=== PATIENT | male | born 1970 | race Caucasian/White ===

== ENCOUNTER 2016-05-19 14:30 | Emergency (ER) | payer OTHER ==
[~2016-05-19 14:30] MED LIST: ASPIRIN EC LOW81 MG PO; CARDIZEM C2 PO; LOPRESSOR25 MG PO; LUNESTA1 MG PO; METHOCARBAMOL500 MG PO; NORCO1 TA1 PO
--- NOTE | 2016-05-20 02:33 | ED CLINICAL REPORT ---
Clinical Report - Physicians/Mid Levels [facility] [address] [address] 05/19/2016 14:30 Patient: RON POND Time Seen: 14:44; initial patient contact, initial documentation, patient care assumed. Arrived- By private vehicle. Historian- patient. HISTORY OF PRESENT ILLNESS Chief Complaint: HEADACHE and MIGRAINE HEADACHE. This started today. It is described as "pain" and diffuse. No neck pain. Not located in the facial region. At its maximum, severity described as severe. When seen in the E.D., severity described as severe. Modifying factors: worsened by bright light; relieved by nothing. The patient has had photophobia and nausea. No preceding symptoms, blurred vision, numbness, weakness or vomiting. No recent travel. Similar symptoms previously: Occasionally, milder. Recent medical care: The patient was seen recently in the office. ( had steroid spinal injection this am for back pain, headache started shortly after, took excedrin, no relief). REVIEW OF SYSTEMS No fever, sinus pressure, ear pain, sore throat or head injury. No chest pain or difficulty breathing. All systems otherwise negative, except as recorded above. PAST HISTORY See nurses notes. PROBLEMS: Laceration. Arthritis. Gastroenteritis. Chest Pain. Anxiety Reaction. Chronic Headache. Seizure Disorder. Headache. Head Injury. Migraine Headache. Heart Disease. Hypertension. --14:39 Hermann Camarillo R.N. ADDITIONAL SURGERIES: Shoulder Surgery. --14:39 Hermann Camarillo R.N. SOCIAL HISTORY Never smoker. No alcohol use or drug use. No recent travel. Is a local resident. FAMILY HISTORY Negative. ADDITIONAL NOTES The nursing notes have been reviewed with agreement regarding the chief complaint, HPI, ROS, PMH and patient medications and allergies. PHYSICAL EXAM Vital Signs: 05/19/2016 14:37 BP: 149/100. HR: 104. RR: 20. O2 saturation: 99%. Temp: 98 F. Pain level now: 10/10. Have been reviewed as abnormal and appear to be correct. Hypertensive. Tachycardic. Respiratory rate normal. Temperature normal. Oxygen saturation normal. Appearance: Alert. No acute distress. Eyes: Pupils equal, round and reactive to light. Eyes normal inspection. ENT: Ears normal. Nose normal. Pharynx normal. Neck: Normal inspection. Neck supple. CVS: Normal heart rate and rhythm. Heart sounds normal. Pulses normal. Respiratory: No respiratory distress. Breath sounds normal. Back: Normal inspection. Skin: Skin warm and dry. Normal skin color. No rash. Normal skin turgor. Extremities: Extremities exhibit normal ROM. No lower extremity edema. Neuro: Oriented X 3. Alert. Mood/affect normal. Speech normal. Cranial nerves normal (as tested). No cerebellar findings. No motor deficit. No sensory deficit. PROGRESS AND PROCEDURES Course of Care: 15:23 05/19/16. pt has long marcos for narcs, over 3,200 pills, last rx 05/04 for #84 oxycodone 15mg and #28 lunesta, see report for full details. Patient counseled in person regarding the patient's stable condition and diagnosis. 15:15. Differential Diagnosis: I considered migraine, subarachnoid hemorrhage, intracranial bleed, vascular malformation, cerebral aneurysm, vascular dissection, vasculitis, temporal arteritis, brain abscess, influenza, viral syndrome, carbon monoxide exposure, analgesic abuse, hypoglycemia, trigeminal neuralgia and dnux-fgdfch-jog headache as a possible cause of headache in this patient. This is a partial list of diagnoses considered. Above considerations are based on history and physical exam. Differential diagnosis was discussed with patient. Disposition: Discharged home in good and improved condition (15:15). Condition: good and stable. CLINICAL IMPRESSION Acute, poorly controlled headache. INSTRUCTIONS Warnings: GENERAL WARNINGS: Return or contact your physician immediately if your condition worsens or changes unexpectedly, if not improving as expected, or if other problems arise. SPECIFICALLY, return if you develop fever, vomiting, numbness, weakness, difficulty thinking, visual disturbances, fainting or extreme fatigue. Prescription Medications: Zofran 4 mg: Take 1 orally every six hours as needed for nausea/vomiting. Dispense ten (10). No refills. Substitution is permissible. Fioricet: Take 1-2 orally every 4 hours as needed for headache. Dispense twenty (20). No refills. Substitution is permissible. Follow-up: Follow up with your doctor in about three days even if well. Call for an appointment. Summary of care provided to patient. Screening today revealed the patient's blood pressure to be in the hypertensive range. The patient should follow up with a primary care provider for blood pressure management. Understanding of the discharge instructions verbalized by patient. (Electronically signed by Christina Yusuf A.R.N.P. 05/19/2016 16:43)
--- NOTE | 2016-05-20 02:33 | ED NURSING NOTES ---
Clinical Report - Nurses [facility] [address] [address] 05/19/2016 14:30 Patient: RON POND TRIAGE Triage time 14:37. Acuity: LEVEL 3. Chief Complaint: MIGRAINE HEADACHE and (Headache onset approx 1000 today. Pt had steroid spinal injection for new onset LBP this am.). 14:40 05/19/16. JEFF COMA SCORE: Jeff Coma Scale: 15- eyes open spontaneously (4); best verbal response- oriented x 4 (5); best motor response- obeys commands (6). --14:42 Hermann Camarillo R.N. 14:37 05/19/16. BP: 149/100. HR: 104. RR: 20. O2 saturation: 99% on room air. Temp: 98 F (oral). Pain level now: 12/21. --14:42 Hermann Camarillo R.N. Weight: 90.7 kg stated. Height/Length: 70 inches Per Patient. BMI: 28.7. --14:39 Hermann Camarillo R.N. Medications None. --14:38 Hermann Camarillo R.N. Allergies No Known Drug Allergy. --14:38 Hermann Camarillo R.N. History Arrived by private vehicle. Historian: patient. SOCIAL HX: Never smoker. No alcohol use or drug use. ABUSE ASSESSMENT: No report of abuse. --14:42 Hermann Camarillo R.N. PROBLEMS: Laceration. Arthritis. Gastroenteritis. Chest Pain. Anxiety Reaction. Chronic Headache. Seizure Disorder. Headache. Head Injury. Migraine Headache. Heart Disease. Hypertension. --14:39 Hermann Camarillo R.N. ADDITIONAL SURGERIES: Shoulder Surgery. --14:39 Hermann Camarillo R.N. Interventions ID band on patient. To treatment room. --14:42 Hermann Camarillo R.N. PHYSICAL ASSESSMENT 14:40. Ambulatory to room. GENERAL / NEURO / PSYCH: Alert. Oriented X 4. Appears in pain. Speech within normal limits. HEENT: No facial asymmetry noted. Photophobia present. Pupils equal, round and reactive to light. RESPIRATORY: Respirations not labored. Breath sounds within normal limits. CVS: Capillary refill less than 2 seconds. GI / : Abdomen soft and nontender. SKIN: Skin is warm and dry. ( LP site appears normal). --14:53 Hermann Camarillo R.N. NURSING PROGRESS NOTES 14:40. Patient gowned. Head of bed elevated. Reassurance given. Lights dimmed. Two patient identifiers checked. Call light placed in reach. Bed placed in lowest position. Brakes of bed on. Patient ready for evaluation- chart flagged. --14:53 Hermann Camarillo R.N. <<STRICKEN ENTRY-- 15:24 05/19/2016 Reglan (Metoclopramide HCl) IM 10 mg given. Allergies verified and confirmed 5 rights. --15:24 Erinn Dukes R.N. --END STRIKE>> Change to Details. --15:27 Erinn Dukes R.N. 15:24 05/19/2016 Reglan (Metoclopramide HCl) IM 10 mg given. Given in the right gluteus karen. Allergies verified and confirmed 5 rights. --15:27 Erinn Dukse R.N. 15:35 05/19/2016 Toradol (Ketorolac Tromethamine) IM 60 mg given. Given in the right gluteus karen. Allergies verified and confirmed 5 rights. --15:37 Hermann Camarillo R.N. 15:35 05/19/2016 Benadryl (DiphenhydrAMINE HCl) IM 50 mg given. Given in the left gluteus karen. Allergies verified, confirmed 5 rights and sedative warning given to the patient. --15:37 Hermann Camarillo R.N. 15:55 05/19/16. BP: 133/102. HR: 112. RR: 20. O2 saturation: 97% on room air. Pain level now: 12/21. --15:56 Hermann Camarillo R.N. 15:55. ( Ice pack provided). --15:58 Hermann Camarillo R.N. 16:00 05/19/2016 Reglan IM Response: no adverse reaction symptoms are the same. The patient feels the same. --16:09 Hermann Camarillo R.N. 16:00 05/19/2016 Toradol IM Response: symptoms are the same. The patient feels the same. --16:09 Hermann Camarillo R.N. 16:00 05/19/2016 Benadryl IM Response: symptoms are the same. The patient feels the same. --16:09 Hermann Camarillo R.N. DISPOSITION / DISCHARGE 16:08 05/19/16. Departure time: 1603. Condition at departure: unchanged and stable. No learning barriers present. Discharge instructions provided and reviewed with the patient. Reviewed warnings. Reviewed medication(s). Patient verbalized understanding. Written instructions provided in [place]. The patient was discharged by the nurse practitioner. He was discharged home and accompanied by spouse. He left the Emergency Department ambulatory and via private vehicle. --16:08 Hermann Camarillo R.N. 15:55 05/19/16. BP: 133/102. HR: 112. RR: 20. O2 saturation: 97% on room air. Temp: 98 F (oral). Pain level now: 12/21. --16:08 Hermann Camarillo R.N. Locked/Released at 05/19/2016 17:50 by Hermann Camarillo R.N.
--- NOTE | 2016-05-20 02:33 | ED CLINICAL REPORT ---
Clinical Report - Physicians/Mid Levels [facility] [address] [address] 05/19/2016 14:30 Patient: RON POND Time Seen: 14:44; initial patient contact, initial documentation, patient care assumed. Arrived- By private vehicle. Historian- patient. HISTORY OF PRESENT ILLNESS Chief Complaint: HEADACHE and MIGRAINE HEADACHE. This started today. It is described as "pain" and diffuse. No neck pain. Not located in the facial region. At its maximum, severity described as severe. When seen in the E.D., severity described as severe. Modifying factors: worsened by bright light; relieved by nothing. The patient has had photophobia and nausea. No preceding symptoms, blurred vision, numbness, weakness or vomiting. No recent travel. Similar symptoms previously: Occasionally, milder. Recent medical care: The patient was seen recently in the office. ( had steroid spinal injection this am for back pain, headache started shortly after, took excedrin, no relief). REVIEW OF SYSTEMS No fever, sinus pressure, ear pain, sore throat or head injury. No chest pain or difficulty breathing. All systems otherwise negative, except as recorded above. PAST HISTORY See nurses notes. PROBLEMS: Laceration. Arthritis. Gastroenteritis. Chest Pain. Anxiety Reaction. Chronic Headache. Seizure Disorder. Headache. Head Injury. Migraine Headache. Heart Disease. Hypertension. --14:39 Hermann Camarillo R.N. ADDITIONAL SURGERIES: Shoulder Surgery. --14:39 Hermann Camarillo R.N. SOCIAL HISTORY Never smoker. No alcohol use or drug use. No recent travel. Is a local resident. FAMILY HISTORY Negative. ADDITIONAL NOTES The nursing notes have been reviewed with agreement regarding the chief complaint, HPI, ROS, PMH and patient medications and allergies. PHYSICAL EXAM Vital Signs: 05/19/2016 14:37 BP: 149/100. HR: 104. RR: 20. O2 saturation: 99%. Temp: 98 F. Pain level now: 10/10. Have been reviewed as abnormal and appear to be correct. Hypertensive. Tachycardic. Respiratory rate normal. Temperature normal. Oxygen saturation normal. Appearance: Alert. No acute distress. Eyes: Pupils equal, round and reactive to light. Eyes normal inspection. ENT: Ears normal. Nose normal. Pharynx normal. Neck: Normal inspection. Neck supple. CVS: Normal heart rate and rhythm. Heart sounds normal. Pulses normal. Respiratory: No respiratory distress. Breath sounds normal. Back: Normal inspection. Skin: Skin warm and dry. Normal skin color. No rash. Normal skin turgor. Extremities: Extremities exhibit normal ROM. No lower extremity edema. Neuro: Oriented X 3. Alert. Mood/affect normal. Speech normal. Cranial nerves normal (as tested). No cerebellar findings. No motor deficit. No sensory deficit. PROGRESS AND PROCEDURES Course of Care: 15:23 05/19/16. pt has long marcos for narcs, over 3,200 pills, last rx 05/04 for #84 oxycodone 15mg and #28 lunesta, see report for full details. Patient counseled in person regarding the patient's stable condition and diagnosis. 15:15. Differential Diagnosis: I considered migraine, subarachnoid hemorrhage, intracranial bleed, vascular malformation, cerebral aneurysm, vascular dissection, vasculitis, temporal arteritis, brain abscess, influenza, viral syndrome, carbon monoxide exposure, analgesic abuse, hypoglycemia, trigeminal neuralgia and hthd-wofaxn-wqn headache as a possible cause of headache in this patient. This is a partial list of diagnoses considered. Above considerations are based on history and physical exam. Differential diagnosis was discussed with patient. Disposition: Discharged home in good and improved condition (15:15). Condition: good and stable. CLINICAL IMPRESSION Acute, poorly controlled headache. INSTRUCTIONS Warnings: GENERAL WARNINGS: Return or contact your physician immediately if your condition worsens or changes unexpectedly, if not improving as expected, or if other problems arise. SPECIFICALLY, return if you develop fever, vomiting, numbness, weakness, difficulty thinking, visual disturbances, fainting or extreme fatigue. Prescription Medications: Zofran 4 mg: Take 1 orally every six hours as needed for nausea/vomiting. Dispense ten (10). No refills. Substitution is permissible. Fioricet: Take 1-2 orally every 4 hours as needed for headache. Dispense twenty (20). No refills. Substitution is permissible. Follow-up: Follow up with your doctor in about three days even if well. Call for an appointment. Summary of care provided to patient. Screening today revealed the patient's blood pressure to be in the hypertensive range. The patient should follow up with a primary care provider for blood pressure management. Understanding of the discharge instructions verbalized by patient. (Electronically signed by Christina Yusuf A.R.N.P. 05/19/2016 16:43)
--- NOTE | 2016-05-20 02:33 | ED ORDER SUMMARY ---
..... Patient: RON POND OrderSheet [facility] VisitID: [id number] [address] [place] [address] 45y, M Registration Date/Time: 05/19/2016 ORDER SHEET Weight: 90.7 kg (stated) Allergies: No Known Drug Allergy GENERAL ORDERS: MEDICATION ORDERS: Toradol IM 60 mg (NOW) (15:07 05/19/2016 HBivens A.R.N.P.) (15:37 JSimbeck R.N.) Benadryl IM 50 mg (NOW) (15:05/19/2016 HBivens A.R.N.P.) (15:37 JSimbeck R.N.) - (Reglan 10mg im stat) (15:05/19/2016 HBivens A.R.N.P.) (15:24 LSullivan R.N.) IV FLUIDS: ORDER SHEET NOTES: [Electronically signed by Christina YusufR.N.P. (16:43 05/19/2016)] [Electronically signed by Hermann Camarillo R.N. (17:50 05/19/2016)] [Electronically locked/signed by Hermann Camarillo R.N. (17:50 05/19/2016)]
--- NOTE | 2016-05-20 02:33 | ED NURSING NOTES ---
Clinical Report - Nurses [facility] [address] [place] [address] 05/19/2016 14:30 Patient: RON POND TRIAGE Triage time 14:37. Acuity: LEVEL 3. Chief Complaint: MIGRAINE HEADACHE and (Headache onset approx 1000 today. Pt had steroid spinal injection for new onset LBP this am.). 14:40 05/19/16. JEFF COMA SCORE: Jeff Coma Scale: 15- eyes open spontaneously (4); best verbal response- oriented x 4 (5); best motor response- obeys commands (6). --14:42 Hermann Camarillo R.N. 14:37 05/19/16. BP: 149/100. HR: 104. RR: 20. O2 saturation: 99% on room air. Temp: 98 F (oral). Pain level now: 12/21. --14:42 Hermann Camarillo R.N. Weight: 90.7 kg stated. Height/Length: 70 inches Per Patient. BMI: 28.7. --14:39 Hermann Camarillo R.N. Medications None. --14:38 Hermann Camarillo R.N. Allergies No Known Drug Allergy. --14:38 Hermann Camarillo R.N. History Arrived by private vehicle. Historian: patient. SOCIAL HX: Never smoker. No alcohol use or drug use. ABUSE ASSESSMENT: No report of abuse. --14:42 Hermann Camarillo R.N. PROBLEMS: Laceration. Arthritis. Gastroenteritis. Chest Pain. Anxiety Reaction. Chronic Headache. Seizure Disorder. Headache. Head Injury. Migraine Headache. Heart Disease. Hypertension. --14:39 Hermann Camarillo R.N. ADDITIONAL SURGERIES: Shoulder Surgery. --14:39 Hermann Camarillo R.N. Interventions ID band on patient. To treatment room. --14:42 Hermann Camarillo R.N. PHYSICAL ASSESSMENT 14:40. Ambulatory to room. GENERAL / NEURO / PSYCH: Alert. Oriented X 4. Appears in pain. Speech within normal limits. HEENT: No facial asymmetry noted. Photophobia present. Pupils equal, round and reactive to light. RESPIRATORY: Respirations not labored. Breath sounds within normal limits. CVS: Capillary refill less than 2 seconds. GI / : Abdomen soft and nontender. SKIN: Skin is warm and dry. ( LP site appears normal). --14:53 Hermann Camarillo R.N. NURSING PROGRESS NOTES 14:40. Patient gowned. Head of bed elevated. Reassurance given. Lights dimmed. Two patient identifiers checked. Call light placed in reach. Bed placed in lowest position. Brakes of bed on. Patient ready for evaluation- chart flagged. --14:53 Hermann Camarillo R.N. <<STRICKEN ENTRY-- 15:24 05/19/2016 Reglan (Metoclopramide HCl) IM 10 mg given. Allergies verified and confirmed 5 rights. --15:24 Erinn Dukes R.N. --END STRIKE>> Change to Details. --15:27 Erinn Dukes R.N. 15:24 05/19/2016 Reglan (Metoclopramide HCl) IM 10 mg given. Given in the right gluteus karen. Allergies verified and confirmed 5 rights. --15:27 Erinn Dukes R.N. 15:35 05/19/2016 Toradol (Ketorolac Tromethamine) IM 60 mg given. Given in the right gluteus karen. Allergies verified and confirmed 5 rights. --15:37 Hermann Camarillo R.N. 15:35 05/19/2016 Benadryl (DiphenhydrAMINE HCl) IM 50 mg given. Given in the left gluteus karen. Allergies verified, confirmed 5 rights and sedative warning given to the patient. --15:37 Hermann Camarillo R.N. 15:55 05/19/16. BP: 133/102. HR: 112. RR: 20. O2 saturation: 97% on room air. Pain level now: 12/21. --15:56 Hermann Camarillo R.N. 15:55. ( Ice pack provided). --15:58 Hermann Camarillo R.N. 16:00 05/19/2016 Reglan IM Response: no adverse reaction symptoms are the same. The patient feels the same. --16:09 Hermann Camarillo R.N. 16:00 05/19/2016 Toradol IM Response: symptoms are the same. The patient feels the same. --16:09 Hermann Camarillo R.N. 16:00 05/19/2016 Benadryl IM Response: symptoms are the same. The patient feels the same. --16:09 Hermann Camarillo R.N. DISPOSITION / DISCHARGE 16:08 05/19/16. Departure time: 1603. Condition at departure: unchanged and stable. No learning barriers present. Discharge instructions provided and reviewed with the patient. Reviewed warnings. Reviewed medication(s). Patient verbalized understanding. Written instructions provided in [place]. The patient was discharged by the nurse practitioner. He was discharged home and accompanied by spouse. He left the Emergency Department ambulatory and via private vehicle. --16:08 Hermann Camarillo R.N. 15:55 05/19/16. BP: 133/102. HR: 112. RR: 20. O2 saturation: 97% on room air. Temp: 98 F (oral). Pain level now: 12/21. --16:08 Hermann Camarillo R.N. Locked/Released at 05/19/2016 17:50 by Hermann Camarillo R.N.
--- NOTE | 2016-05-20 02:33 | ED ORDER SUMMARY ---
..... Patient: RON POND OrderSheet [facility] VisitID: [id number] [address] [place] [address] 45y, M Registration Date/Time: 05/19/2016 ORDER SHEET Weight: 90.7 kg (stated) Allergies: No Known Drug Allergy GENERAL ORDERS: MEDICATION ORDERS: Toradol IM 60 mg (NOW) (15:07 05/19/2016 HBivens A.R.N.P.) (15:37 JSimbeck R.N.) Benadryl IM 50 mg (NOW) (15:05/19/2016 HBivens A.R.N.P.) (15:37 JSimbeck R.N.) - (Reglan 10mg im stat) (15:05/19/2016 HBivens A.R.N.P.) (15:24 LSullivan R.N.) IV FLUIDS: ORDER SHEET NOTES: [Electronically signed by Christina YusufR.N.P. (16:43 05/19/2016)] [Electronically signed by Hermann Camarillo R.N. (17:50 05/19/2016)] [Electronically locked/signed by Hermann Camarillo R.N. (17:50 05/19/2016)]
--- NOTE | 2016-05-20 02:36 | ED DISCHARGE INSTRUCTIONS ---
Patient: RON POND General Instructions [facility] VisitID: [id number] [place] [address] 45y, M Registration Date/Time: 05/19/2016 Acute, poorly controlled headache. INSTRUCTIONS Warnings: GENERAL WARNINGS: Return or contact your physician immediately if your condition worsens or changes unexpectedly, if not improving as expected, or if other problems arise. SPECIFICALLY, return if you develop fever, vomiting, numbness, weakness, difficulty thinking, visual disturbances, fainting or extreme fatigue. Prescription Medications: Zofran 4 mg: Take 1 orally every six hours as needed for nausea/vomiting. Dispense ten (10). No refills. Substitution is permissible. Fioricet: Take 1-2 orally every 4 hours as needed for headache. Dispense twenty (20). No refills. Substitution is permissible. Follow-up: Follow up with your doctor in about three days even if well. Call for an appointment. Summary of care provided to patient. Screening today revealed the patient's blood pressure to be in the hypertensive range. The patient should follow up with a primary care provider for blood pressure management. Understanding of the discharge instructions verbalized by patient. ADDITIONAL INFORMATION Headache [Unspecified] The cause of your headache today is not clear, but it does not appear to be the sign of any serious illness. Under stress, some people tense the muscles of their shoulder, neck and scalp without knowing it. If this condition lasts long enough, a TENSION HEADACHE can occur. A MIGRAINE HEADACHE is caused by changes in blood flow to the brain. A migraine attack may be triggered by emotional stress, hormone changes during the menstrual cycle, oral contraceptives, alcohol use, certain foods containing tyramine, eye strain, weather changes, missing meals, lack of sleep or oversleeping. Other causes of headache include a viral illness with high fever, head injury with concussion, sinus, ear or throat infection, dental pain and TMJ (jaw joint) pain. More serious but less common causes of headache include stroke, brain hemorrhage, brain tumor, meningitis and encephalitis. Home Care: If you were given pain medicine for this headache, do not drive yourself home. Arrange for a ride, instead. When you get home, try to sleep. You should feel much better when you wake up. Apply heat to the back of your neck to relieve neck muscle spasm. Migraine headaches may respond best to an ice pack on the forehead or at the base of the skull. If you are having nausea or vomiting, follow a light diet until your headache is relieved. If you have a migraine type headache, use sunglasses when in the daylight or around bright indoor lighting until symptoms improve. Bright glaring light can worsen this kind of headache. Follow Up with your doctor if the headache is not better within the next 24 hours. If you have frequent headaches you should discuss a treatment plan with your primary care doctor. By being aware of the earliest signs of headache, and starting treatment right away, you may be able to stop the pain yourself. Get Prompt Medical Attention if any of the following occur: Worsening of your head pain or no improvement within 24 hours Repeated vomiting (unable to keep liquids down) Fever of 100.4F (38C) or higher, or as directed by your healthcare provider Stiff neck Extreme drowsiness, confusion or fainting Dizziness, vertigo (dizziness with spinning sensation) Weakness of an arm or leg or one side of the face Difficulty with speech or vision Ondansetron Oral disintegrating tablet What is this medicine? ONDANSETRON (on OMAR se dolores) is used to treat nausea and vomiting caused by chemotherapy. It is also used to prevent or treat nausea and vomiting after surgery. How should I use this medicine? These tablets are made to dissolve in the mouth. Do not try to push the tablet through the foil backing. With dry hands, peel away the foil backing and gently remove the tablet. Place the tablet in the mouth and allow it to dissolve, then swallow. While you may take these tablets with water, it is not necessary to do so. Talk to your paint spray tender regarding the use of this medicine in children. Special care may be needed. What side effects may I notice from receiving this medicine? Side effects that you should report to your doctor or health patient care associate as soon as possible: allergic reactions like skin rash, itching or hives, swelling of the face, lips, or tongue breathing problems dizziness fast or irregular heartbeat feeling faint or lightheaded, falls fever and chills swelling of the hands and feet tightness in the chest Side effects that usually do not require medical attention (report to your doctor or health patient care associate if they continue or are bothersome): constipation or diarrhea headache What may interact with this medicine? Do not take this medicine with any of the following medications: -apomorphine -cisapride -dofetilide -dronedarone -pimozide -thioridazine -ziprasidone This medicine may also interact with the following medications: -carbamazepine -phenytoin -rifampicin -tramadol -other medicines that prolong the QT interval (cause an abnormal heart rhythm) What if I miss a dose? If you miss a dose, take it as soon as you can. If it is almost time for your next dose, take only that dose. Do not take double or extra doses. Where should I keep my medicine? Keep out of the reach of children. Store between 2 and 30 degrees C (36 and 86 degrees F). Throw away any unused medicine after the expiration date. What should I tell my health care provider before I take this medicine? They need to know if you have any of these conditions: heart disease history of irregular heartbeat liver disease low levels of magnesium or potassium in the blood an unusual or allergic reaction to ondansetron, granisetron, other medicines, foods, dyes, or preservatives or trying to get breast-feeding What should I watch for while using this medicine? Check with your doctor or health patient care associate as soon as you can if you have any sign of an allergic reaction. Butalbital, Acetaminophen, Caffeine Oral tablet What is this medicine? ACETAMINOPHEN; BUTALBITAL; CAFFEINE (a set a WANG cheryl fen; byoo CELINA bi celina; KAF een) is a pain reliever. It is used to treat tension headaches. How should I use this medicine? Take this medicine by mouth with a full glass of water. Follow the directions on the prescription label. If the medicine upsets your stomach, take the medicine with food or milk. Do not take more than you are told to take. Talk to your paint spray tender regarding the use of this medicine in children. Special care may be needed. What side effects may I notice from receiving this medicine? Side effects that you should report to your doctor or health patient care associate as soon as possible: allergic reactions like skin rash, itching or hives, swelling of the face, lips, or tongue breathing problems confusion feeling faint or lightheaded, falls redness, blistering, peeling or loosening of the skin, including inside the mouth seizure stomach pain yellowing of the eyes or skin Side effects that usually do not require medical attention (report to your doctor or health patient care associate if they continue or are bothersome): constipation nausea, vomiting What may interact with this medicine? alcohol or medicines that contain alcohol antidepressants, especially MAOIs like isocarboxazid, phenelzine, tranylcypromine, and selegiline antihistamines benzodiazepines carbamazepine isoniazid medicines for pain like pentazocine, buprenorphine, butorphanol, nalbuphine, tramadol, and propoxyphene muscle relaxants naltrexone phenobarbital, phenytoin, and fosphenytoin phenothiazines like perphenazine, thioridazine, chlorpromazine, mesoridazine, fluphenazine, prochlorperazine, promazine, and trifluoperazine voriconazole What if I miss a dose? If you miss a dose, take it as soon as you can. If it is almost time for your next dose, take only that dose. Do not take double or extra doses. Where should I keep my medicine? Keep out of the reach of children. This medicine can be abused. Keep your medicine in a safe place to protect it from theft. Do not share this medicine with anyone. Selling or giving away this medicine is dangerous and against the law. Store at room temperature between 15 and 30 degrees C (59 and 86 degrees F). Keep container tightly closed. Protect from light. Throw away any unused medicine after the expiration date. What should I tell my health care provider before I take this medicine? They need to know if you have any of these conditions: drink more than 3 alcohol-containing drinks per day drug abuse or addiction heart or circulation problems kidney disease or problems going to the bathroom liver disease lung disease, asthma, or breathing problems porphyria an unusual or allergic reaction to acetaminophen, butalbital or other barbiturates, caffeine, other medicines, foods, dyes, or preservatives or trying to get breast-feeding What should I watch for while using this medicine? Tell your doctor or health patient care associate if your pain does not go away, if it gets worse, or if you have new or a different type of pain. You may develop tolerance to the medicine. Tolerance means that you will need a higher dose of the medicine for pain relief. Tolerance is normal and is expected if you take the medicine for a long time. Do not suddenly stop taking your medicine because you may develop a severe reaction. Your body becomes used to the medicine. This does NOT mean you are addicted. Addiction is a behavior related to getting and using a drug for a non-medical reason. If you have pain, you have a medical reason to take pain medicine. Your doctor will tell you how much medicine to take. If your doctor wants you to stop the medicine, the dose will be slowly lowered over time to avoid any side effects. You may get drowsy or dizzy when you first start taking the medicine or change doses. Do not drive, use machinery, or do anything that may be dangerous until you know how the medicine affects you. Stand or sit up slowly. Do not take other medicines that contain acetaminophen with this medicine. Always read labels carefully. If you have questions, ask your doctor or pharmacist. If you take too much acetaminophen get medical help right away. Too much acetaminophen can be very dangerous and cause liver damage. Even if you do not have symptoms, it is important to get help right away. You have been given the following additional information: Headache, Unspecified Ondansetron Oral disintegrating tablet Butalbital, Acetaminophen, Caffeine Oral tablet (Electronically signed by Christina Yusuf A.R.N.P. 05/19/2016 16:43)
--- NOTE | 2016-05-20 02:36 | ED MAR SUMMARY ---
..... Medication Administration Record [facility] [address] [place] [address] Patient: RON POND Visit ID: [id number] 45y, M Weight: 90.7 kg Height/Length: 70 in BMI: 28.7 ALLERGIES: No Known Drug Allergy Given 15:05/19/2016 Erinn Dukes R.N. Medication Administered: REGLAN [IM] (METOCLOPRAMIDE HCL), Dose: 10 mg IM. Medication Ordered: - (Reglan 10mg im stat). Given 15:05/19/2016 Hermann Camarillo R.N. Medication Administered: TORADOL [IM] (KETOROLAC TROMETHAMINE), Dose: 60 mg IM. Medication Ordered: Toradol IM 60 mg (NOW). Given 15:05/19/2016 Hermann Camarillo R.N. Medication Administered: BENADRYL [IM] (DIPHENHYDRAMINE HCL), Dose: 50 mg IM. Medication Ordered: Benadryl IM 50 mg (NOW).
--- NOTE | 2016-05-20 02:36 | ED MED RECONCILIATION SUMMARY ---
Patient: RON POND Medication Reconciliation Report [facility] VisitID: [id number] [address] [place] [address] 45y, M Registration Date/Time: 05/19/2016 Weight: 90.7 kg Height/Length: 70 in. BMI: 28.7 ALLERGIES: No Known Drug Allergy The patient's Home Medications are listed below: NONE. The source(s) of the original Home Medication information: Not obtained. The following Medications were given to the patient in the Emergency Department: Reglan [IM] IM 10 mg, administered: 05/19/2016 3:24:00 PM Toradol [IM] IM 60 mg, administered: 05/19/2016 3:35:00 PM Benadryl [IM] IM 50 mg, administered: 05/19/2016 3:35:00 PM The following Medications were prescribed to the patient: Zofran 4 mg: Take 1 orally every six hours as needed for nausea/vomiting. Dispense ten (10). No refills. Substitution is permissible. -- Christina Yusuf A.R.N.P. Fioricet: Take 1-2 orally every 4 hours as needed for headache. Dispense twenty (20). No refills. Substitution is permissible. -- Christina Yusuf A.R.N.P.
--- NOTE | 2016-05-20 02:36 | ED MED RECONCILIATION SUMMARY ---
Patient: RON POND Medication Reconciliation Report [facility] VisitID: [id number] [address] [place] [address] 45y, M Registration Date/Time: 05/19/2016 Weight: 90.7 kg Height/Length: 70 in. BMI: 28.7 ALLERGIES: No Known Drug Allergy The patient's Home Medications are listed below: NONE. The source(s) of the original Home Medication information: Not obtained. The following Medications were given to the patient in the Emergency Department: Reglan [IM] IM 10 mg, administered: 05/19/2016 3:24:00 PM Toradol [IM] IM 60 mg, administered: 05/19/2016 3:35:00 PM Benadryl [IM] IM 50 mg, administered: 05/19/2016 3:35:00 PM The following Medications were prescribed to the patient: Zofran 4 mg: Take 1 orally every six hours as needed for nausea/vomiting. Dispense ten (10). No refills. Substitution is permissible. -- Christina Yusuf A.R.N.P. Fioricet: Take 1-2 orally every 4 hours as needed for headache. Dispense twenty (20). No refills. Substitution is permissible. -- Christina Yusuf A.R.N.P.
--- NOTE | 2016-05-20 02:36 | ED MAR SUMMARY ---
..... Medication Administration Record [facility] [address] [place] [address] Patient: RON POND Visit ID: [id number] 45y, M Weight: 90.7 kg Height/Length: 70 in BMI: 28.7 ALLERGIES: No Known Drug Allergy Given 15:05/19/2016 Erinn Dukes R.N. Medication Administered: REGLAN [IM] (METOCLOPRAMIDE HCL), Dose: 10 mg IM. Medication Ordered: - (Reglan 10mg im stat). Given 15:05/19/2016 Hermann Camarillo R.N. Medication Administered: TORADOL [IM] (KETOROLAC TROMETHAMINE), Dose: 60 mg IM. Medication Ordered: Toradol IM 60 mg (NOW). Given 15:05/19/2016 Hermann Camarillo R.N. Medication Administered: BENADRYL [IM] (DIPHENHYDRAMINE HCL), Dose: 50 mg IM. Medication Ordered: Benadryl IM 50 mg (NOW).
== END 2016-05-19 16:03 | disposition home or self-care (01) ==
LOC: ED SRH 14:30
DX: R51 Headache (principal); R11.0 Nausea; I10 Essential (primary) hypertension